=== PATIENT | male | born 1990 | race African-American/Black ===

== ENCOUNTER 2025-08-10 11:53 | Inpatient (IN) | payer OTHER ==
[~2025-08-10] VITALS: Ht 182.9 cm; Wt 76.7 kg
[2025-08-10] MEDS ORDERED: IBUPROFEN 600 MG TABLET ONE (12:15)
[2025-08-10] MEDS: IBUPROFEN 600 MG TABLET PO ONE (12:30)
[2025-08-10 12:36] LABS: APPEARANCE,URINE CLEAR (CLEAR); BLOOD, URINE Trace-intact Ery/uL (NEGATIVE); LEUKOCYTE ESTERASE ,URINE Negative (NEGATIVE); NITRITE, URINE NEGATIVE (NEGATIVE); UGLUCOSE Negative (NEGATIVE)
[2025-08-10 12:40] LABS: ADD URINE CULTURE NO
[2025-08-10 12:47] LABS: PLATELET COUNT (AUTO) 262 K/uL (150-450); RED BLOOD CELL COUNT(AUTO) 3.68 MIL/uL (4.5-6.0); RED CELL DISTRIBUTION WIDTH 18.6 % (11.5-15.0); WHITE BLOOD COUNT (AUTO) 5.3 K/uL (4.3-11.0)
[2025-08-10 12:55] LABS: CALCIUM, SERUM 8.6 mg/dL (8.5-10.1); CREATININE 1.6 mg/dL (0.6-1.3); SODIUM SERUM 140 mmol/L (136-145); UREA NITROGEN, BLOOD 40 mg/dL (7-18)
[2025-08-10 13:00] LABS: ASPARTATE AMINOTRANSFERASE 54 U/L (15-37); TOTAL PROTEIN, SERUM 8.2 g/dL (6.4-8.2)
[2025-08-10] MEDS ORDERED: ASPIRIN 325 MG TABLET ONE (13:29)
[2025-08-10] MEDS: ASPIRIN 325 MG TABLET PO ONE (13:33)
[2025-08-10] MEDS ORDERED: ZOLPIDEM TARTRATE 5 MG TABLET PO PRN (15:30)
[2025-08-10] MEDS ORDERED: Z GUARD REMEDY 4 OZ OINT TP PRN (15:30)
[2025-08-10] MEDS ORDERED: ONDANSETRON HCL/PF 4 MG/2 ML VIAL IVP PRN (15:30)
[2025-08-10] MEDS ORDERED: MAGNESIUM HYDROXIDE 30 ML UDC PO PRN (15:30)
[2025-08-10] MEDS ORDERED: MAG HYDROX/AL HYDROX/SIMETH 30 ML UDC PO PRN (15:30)
[2025-08-10] MEDS: FUROSEMIDE 40 MG/4 ML VIAL IV SCH (16:50)
[2025-08-10] MEDS: ACETAMINOPHEN 325 MG TABLET PO PRN (19:22)
[2025-08-10 20:00] VITALS: BP 109/75; TEMP 98.6; O2SAT 100
[2025-08-10] MEDS: ENOXAPARIN SODIUM 120 MG/0.8 ML DISP.SYRIN SQ SCH (20:31)
[2025-08-10] MEDS: MORPHINE SULFATE INJ 4 MG/ML DISP.SYRIN IV PRN (21:03)
[2025-08-11] VITALS: BP 112/77; TEMP 98.1; O2SAT 95
[2025-08-11] MEDS: HYDROCODONE/APAP 5/325MG TABLET PO ONE (00:12)
[2025-08-11 04:00] VITALS: BP_SYST 106; BP_SYST 116; BP_DIAS 78; BP_DIAS 82; TEMP 97.9; TEMP 98; O2SAT 100; O2SAT 96
[2025-08-11 07:53] LABS: PLATELET COUNT (AUTO) 190 K/uL (150-450); RED BLOOD CELL COUNT(AUTO) 3.21 MIL/uL (4.5-6.0); RED CELL DISTRIBUTION WIDTH 19.1 % (11.5-15.0); WHITE BLOOD COUNT (AUTO) 3.6 K/uL (4.3-11.0)
[2025-08-11 08:00] VITALS: BP 123/84; TEMP 98.1; O2SAT 100
[2025-08-11 08:36] LABS: ASPARTATE AMINOTRANSFERASE 48.0 U/L (15-37); CALCIUM, SERUM 8.3 mg/dL (8.5-10.1); CREATININE 1.5 mg/dL (0.6-1.3); PHOSPHORUS 3.0 mg/dL (2.5-4.9); SODIUM SERUM 139.0 mmol/L (136-145); TOTAL PROTEIN, SERUM 7.0 g/dL (6.4-8.2); UREA NITROGEN, BLOOD 39.0 mg/dL (7-18)
[2025-08-11] MEDS: PANTOPRAZOLE 40 MG TABLET.DR PO SCH (08:36)
[2025-08-11] MEDS: ASPIRIN EC 81 MG TABLET.DR PO SCH (08:36)
[2025-08-11] MEDS: ENOXAPARIN SODIUM 80 MG/0.8 ML DISP.SYRIN SQ SCH (08:36)
[2025-08-11] MEDS: WARFARIN SODIUM 5 MG TABLET PO SCH (09:00)
[2025-08-11] MEDS: METOPROLOL TARTRATE 50 MG TABLET PO SCH (09:48)
[2025-08-11 11:30] VITALS: BP 114/85; TEMP 98.1; O2SAT 100
[2025-08-11] MEDS: LEVOTHYROXINE SODIUM 25 MCG TABLET PO SCH (15:26)
[2025-08-11 16:00] VITALS: BP 122/94; TEMP 98.8; O2SAT 100
[2025-08-11] MEDS: HYDROCODONE/APAP 5/325MG TABLET PO PRN (17:04)
[2025-08-11 20:00] VITALS: BP 94/62; TEMP 98.4; O2SAT 96
[2025-08-12] VITALS (7 sets, daily range): BP systolic 97–113; BP diastolic 68–85; TEMP 97.7–99.7; O2SAT 94–97
[2025-08-12 07:38] LABS: PLATELET COUNT (AUTO) 204 K/uL (150-450); RED BLOOD CELL COUNT(AUTO) 3.09 MIL/uL (4.5-6.0); RED CELL DISTRIBUTION WIDTH 17.7 % (11.5-15.0); WHITE BLOOD COUNT (AUTO) 3.5 K/uL (4.3-11.0)
[2025-08-12 07:50] LABS: INR 1.3 (0.91-1.10)
[2025-08-12 07:56] LABS: ASPARTATE AMINOTRANSFERASE 34.0 U/L (15-37); CALCIUM, SERUM 8.1 mg/dL (8.5-10.1); CREATININE 1.5 mg/dL (0.6-1.3); PHOSPHORUS 2.4 mg/dL (2.5-4.9); SODIUM SERUM 138.0 mmol/L (136-145); TOTAL PROTEIN, SERUM 6.7 g/dL (6.4-8.2); UREA NITROGEN, BLOOD 26.0 mg/dL (7-18)
[2025-08-12 08:00] LABS: CREATINE KINASE, TOTAL 80.0 U/L (39-308)
[2025-08-12] MEDS: MAGNESIUM OXIDE 400 MG TABLET PO ONE (10:25)
[2025-08-12] MEDS: MUPIROCIN OINT 2% 22 GM TUBE TP SCH (10:25)
[2025-08-12] MEDS: K PHOS NEUTRAL 250 MG TABLET PO ONE (16:08)
[2025-08-13] VITALS (7 sets, daily range): BP systolic 98–124; BP diastolic 67–85; TEMP 97.9–99.1; O2SAT 95–99
[2025-08-13 07:00] LABS: PLATELET COUNT (AUTO) 211 K/uL (150-450); RED BLOOD CELL COUNT(AUTO) 3.23 MIL/uL (4.5-6.0); RED CELL DISTRIBUTION WIDTH 18.4 % (11.5-15.0); WHITE BLOOD COUNT (AUTO) 3.4 K/uL (4.3-11.0)
[2025-08-13 07:13] LABS: ASPARTATE AMINOTRANSFERASE 36.0 U/L (15-37); CALCIUM, SERUM 8.4 mg/dL (8.5-10.1); CREATININE 1.4 mg/dL (0.6-1.3); PHOSPHORUS 2.3 mg/dL (2.5-4.9); SODIUM SERUM 140.0 mmol/L (136-145); TOTAL PROTEIN, SERUM 6.9 g/dL (6.4-8.2); UREA NITROGEN, BLOOD 21.0 mg/dL (7-18)
[2025-08-13 07:20] LABS: INR 1.18 (0.91-1.10)
[2025-08-13 08:07] LABS: PTH, INTACT 52 pg/mL (15-65)
[2025-08-13] MEDS: NEOMY SULF/BACITRAC ZN/POLY 15 GM TUBE TP SCH (09:30)
[2025-08-13] MEDS ORDERED: MAGNESIUM OXIDE 400 MG TABLET PO ONE (11:00)
[2025-08-13] MEDS: MAGNESIUM OXIDE 400 MG TABLET PO SCH (11:03)
[2025-08-13] MEDS: K PHOS NEUTRAL 250 MG TABLET PO ONE (17:55)
[2025-08-13] MEDS: WARFARIN SODIUM 5 MG TABLET PO SCH (17:55)
[2025-08-13] MEDS: NITROGLYCERIN 0.4 MG/TAB BOTTLE SL PRN (21:37)
[2025-08-14] VITALS: BP 107/83; TEMP 97.5; O2SAT 94
[2025-08-14 04:00] VITALS: BP 107/81; TEMP 97.9; O2SAT 99
[2025-08-14 07:30] LABS: PLATELET COUNT (AUTO) 234 K/uL (150-450); RED BLOOD CELL COUNT(AUTO) 3.36 MIL/uL (4.5-6.0); RED CELL DISTRIBUTION WIDTH 17.9 % (11.5-15.0); WHITE BLOOD COUNT (AUTO) 4.0 K/uL (4.3-11.0)
[2025-08-14 07:45] LABS: ASPARTATE AMINOTRANSFERASE 42.0 U/L (15-37); CALCIUM, SERUM 8.6 mg/dL (8.5-10.1); CREATININE 1.2 mg/dL (0.6-1.3); PHOSPHORUS 2.3 mg/dL (2.5-4.9); SODIUM SERUM 139.0 mmol/L (136-145); TOTAL PROTEIN, SERUM 6.9 g/dL (6.4-8.2); UREA NITROGEN, BLOOD 21.0 mg/dL (7-18)
[2025-08-14 08:00] VITALS: BP 99/68; TEMP 97.5; O2SAT 100
[2025-08-14] MEDS ORDERED: METO25TA4 PO (08:35)
[2025-08-14] MEDS ORDERED: EMPA10TA PO (08:35)
[2025-08-14] MEDS ORDERED: TORS20TA3 PO (08:35)
[2025-08-14] MEDS ORDERED: WARF-58 PO (08:35)
[2025-08-14] MEDS: Magnesium 1GM/D5W 100ML PREMIX 100 ML IV SCH (10:14)
[2025-08-14 11:00] VITALS: BP 103/81; TEMP 98.6; O2SAT 97
[2025-08-14 16:00] VITALS: BP 105/73; TEMP 98.2; O2SAT 97
[2025-08-14] MEDS: K PHOS NEUTRAL 250 MG TABLET PO ONE (17:14)
[2025-08-14 18:15] LABS: INR 1.22 (0.91-1.10)
[2025-08-14 20:00] VITALS: BP 106/85; TEMP 98.4; O2SAT 97
[2025-08-15] VITALS: BP 97/78; TEMP 98.4; O2SAT 97
[2025-08-15 04:00] VITALS: BP 95/76; TEMP 98.4; O2SAT 97
[2025-08-15 07:31] LABS: PLATELET COUNT (AUTO) 241 K/uL (150-450); RED BLOOD CELL COUNT(AUTO) 3.55 MIL/uL (4.5-6.0); RED CELL DISTRIBUTION WIDTH 18.0 % (11.5-15.0); WHITE BLOOD COUNT (AUTO) 4.1 K/uL (4.3-11.0)
[2025-08-15 07:54] LABS: CALCIUM, SERUM 9.3 mg/dL (8.5-10.1); CREATININE 1.3 mg/dL (0.6-1.3); SODIUM SERUM 141.0 mmol/L (136-145); UREA NITROGEN, BLOOD 24.0 mg/dL (7-18)
[2025-08-15 08:07] LABS: INR 1.29 (0.91-1.10)
[2025-08-15] MEDS: WARFARIN SODIUM 5 MG TABLET PO SCH (16:17)
[2025-08-15 20:00] VITALS: BP 99/70; TEMP 97.7; O2SAT 96
[2025-08-15 20:50] VITALS: BP 99/70; TEMP 97.7; O2SAT 96
[2025-08-16] VITALS (7 sets, daily range): BP systolic 98–102; BP diastolic 73–81; TEMP 97.5–98.4; O2SAT 97–99
[2025-08-16 11:01] LABS: CALCIUM, SERUM 9.0 mg/dL (8.5-10.1); CREATININE 1.4 mg/dL (0.6-1.3); SODIUM SERUM 136.0 mmol/L (136-145); UREA NITROGEN, BLOOD 24.0 mg/dL (7-18)
[2025-08-16 11:12] LABS: INR 1.8 (0.91-1.10)
[2025-08-17 07:29] LABS: PLATELET COUNT (AUTO) 250 K/uL (150-450); RED BLOOD CELL COUNT(AUTO) 3.40 MIL/uL (4.5-6.0); RED CELL DISTRIBUTION WIDTH 17.7 % (11.5-15.0); WHITE BLOOD COUNT (AUTO) 5.7 K/uL (4.3-11.0)
[2025-08-17 07:34] LABS: INR 1.99 (0.91-1.10)
[2025-08-17 07:51] LABS: CALCIUM, SERUM 9.3 mg/dL (8.5-10.1); CREATININE 1.2 mg/dL (0.6-1.3); SODIUM SERUM 138.0 mmol/L (136-145); UREA NITROGEN, BLOOD 23.0 mg/dL (7-18)
[2025-08-17 08:00] VITALS: BP 106/83; TEMP 98.4; O2SAT 96
[2025-08-17 16:00] VITALS: BP 100/67; TEMP 98.2; O2SAT 96
[2025-08-17 21:02] VITALS: BP 99/72; TEMP 98.2; O2SAT 99
[2025-08-18 08:00] VITALS: BP 105/84; TEMP 98.1; O2SAT 100
[2025-08-18 08:31] VITALS: BP 105/84
[2025-08-18 09:44] LABS: PLATELET COUNT (AUTO) 219 K/uL (150-450); RED BLOOD CELL COUNT(AUTO) 3.23 MIL/uL (4.5-6.0); RED CELL DISTRIBUTION WIDTH 19.1 % (11.5-15.0); WHITE BLOOD COUNT (AUTO) 6.6 K/uL (4.3-11.0)
[2025-08-18 09:53] LABS: CALCIUM, SERUM 8.9 mg/dL (8.5-10.1); CREATININE 1.4 mg/dL (0.6-1.3); PHOSPHORUS 2.7 mg/dL (2.5-4.9); SODIUM SERUM 136.0 mmol/L (136-145); UREA NITROGEN, BLOOD 30.0 mg/dL (7-18)
[2025-08-18 10:15] LABS: INR 3.73 (0.91-1.10)
[2025-08-18] MEDS ORDERED: NITR0.4T48 SL (12:42)
[2025-08-18] MEDS ORDERED: EMPA10TA PO (12:42)
[2025-08-18] MEDS ORDERED: METO50TA16 PO (12:42)
[2025-08-18] MEDS ORDERED: MUPI22OI7 TP (12:42)
[2025-08-18] MEDS ORDERED: TORS20TA3 PO (12:42)
[2025-08-18] MEDS ORDERED: WARF5TAB8 PO (12:42)
[2025-08-18] MEDS ORDERED: MAGN400T26 PO (12:42)
[2025-08-18] MEDS ORDERED: PANT40TA49 PO (12:42)
== END 2025-08-18 15:30 | disposition home or self-care (01) | DRG 194 ==
LOC: ER 11:57 → TELE 15:58 → MED 08-16 11:04
PROVIDERS: ATTEND Student in an Organized Health Care Education/Training Program
DX: I13.0 Hypertensive heart and chronic kidney disease with heart failure and stage 1 through stage 4 chronic kidney disease, or unspecified chronic kidney disease (principal); N17.0 Acute kidney failure with tubular necrosis; E44.0 Moderate protein-calorie malnutrition; E83.39 Other disorders of phosphorus metabolism; E88.09 Other disorders of plasma-protein metabolism, not elsewhere classified; K80.21 Calculus of gallbladder without cholecystitis with obstruction; I21.A1 Myocardial infarction type 2; I69.351 Hemiplegia and hemiparesis following cerebral infarction affecting right dominant side; I50.23 Acute on chronic systolic (congestive) heart failure; I42.9 Cardiomyopathy, unspecified; N18.9 Chronic kidney disease, unspecified; D64.9 Anemia, unspecified; Z59.00 Homelessness unspecified; Z95.0 Presence of cardiac pacemaker; Z86.79 Personal history of other diseases of the circulatory system; I73.9 Peripheral vascular disease, unspecified; Z20.822 Contact with and (suspected) exposure to COVID-19; Z86.19 Personal history of other infectious and parasitic diseases; E80.6 Other disorders of bilirubin metabolism; E83.89 Other disorders of mineral metabolism; F19.10 Other psychoactive substance abuse, uncomplicated; S61.204A Unspecified open wound of right ring finger without damage to nail, initial encounter; X58.XXXA Exposure to other specified factors, initial encounter; Y93.9 Activity, unspecified; Y92.89 Other specified places as the place of occurrence of the external cause; E83.42 Hypomagnesemia; Z68.22 Body mass index [BMI] 22.0-22.9, adult
CPT/HCPCS: 36415; 71045-TC; 76770-TC; 80048-TC; 80053-TC; 80076-TC; 81001; 82550-TC; 83690-TC; 83735-TC; 83970; 84100-TC; 84155; 84165; 84439-TC; 84443-TC; 84484-TC; 85025-TC; 85027-TC; 85610-TC; 85730-TC; 87081-TC; 87086-TC; 93307-TC; 97110-TC; 97116-TC; 97530-TC; 98960; A4223; G0378; J1650; J1938; J2270; J3475; J7050